=== PATIENT | female | born 1980 | race Caucasian/White ===

== ENCOUNTER 2017-04-29 07:01 | Emergency (ER) | payer MEDICAID ==
--- NOTE | 2017-04-29 07:08 | EDPHY ---
H & P Time Seen by Provider: 04/29/17 07:07 HPI/ROS: 36-year-old female presents complaining of right upper eyelid pain. She states while breast-feeding her daughter she reached up and poked her in the eyelid with her sharp tiny fingernail. This occurred 4 days ago. She now complains of pain and swelling to the right lateral eyelid. No blurred vision, no changes in vision. No fever or chills Review of systems As per HPI General no fever no chills no weakness HEENT no eye pain no eye discharge. No eye redness, no sore throat Respiratory no cough, no shortness of breath Cardiac no chest pain, no peripheral edema GI no abdominal pain, no diarrhea, no constipation, no nausea, no vomiting no flank pain, no hematuria, no dysuria Musculoskeletal no myalgias, no joint pain Heme no easy bruising, no easy bleeding Endo no polyuria, no polydipsia Skin no rashes, no pruritus Neuro no syncope, no dizziness, no headaches Psych is no suicidal ideation, no homicidal ideation Past Medical/Surgical History: Noncontributory Social History: No alcohol or drug use Smoking Status: Never smoked Physical Exam: 36-year-old female alert and oriented no acute distress nontoxic appearance afebrile Vital signs stable Atraumatic normocephalic Extraocular muscles intact, anicteric Right eye Right upper eyelid lateral aspect with erythema and edema, tenderness to palpation, no visible mass or pustule Extraocular muscle intact, pupillary response normal, no fluorescein uptake no fluorescein pooling Anterior chamber intact No respiratory distress Constitutional: Initial Vital Signs Temperature (C) 36.8 C 04/29/17 07:04 Heart Rate 86 04/29/17 07:04 Respiratory Rate 16 04/29/17 07:04 Blood Pressure 137/76 H 04/29/17 07:04 O2 Sat (%) 97 04/29/17 07:04 O2 Delivery Mode Room Air Allergies/Adverse Reactions: No Known Allergies Allergy (Verified 04/29/17 07:10) Home Medications: Medication Instructions Recorded Cefadroxil Hydrate [Cefadroxil] 500 mg PO BID 10 Days #20 capsule 04/29/17 04/29/17 Medical Decision Making ED Course/Re-evaluation: Patient seen and evaluated for right upper eyelid pain Differential diagnosis considered Sty, corneal abrasion, iritis, eyelid cellulitis, eyelid contusion Impression I suspect this was initially and eyelid abrasion , now I am concerned this his and eyelid cellulitis at the right lateral aspect. Plan Cefadroxil 500 twice daily times 10 days, safe in , patient currently breast-feeding Ibuprofen or acetaminophen as needed for pain Erythromycin ophthalmic ointment at bedtime x3 days Follow-up with Ophthalmology if not improving Return as needed - Data Points Medications Given: Discontinued Medications Erythromycin (Erythromycin 0.5%) 1 terry EACHEYE ONCE ONE Stop: 04/29/17 07:34 Last Admin: 04/29/17 07:43 Dose: 1 terry Proparacaine HCl (Alcaine 0.5%) 2 drops OP EDNOW ONE Stop: 04/29/17 07:12 Last Admin: 04/29/17 07:13 Dose: 2 drop Departure - Departure Disposition: Home, Routine, Self-Care Clinical Impression: Eyelid cellulitis Condition: Good Instructions: Erythromycin (Into the eye), Blepharitis (ED) Referrals: LUZ RUIZ,. [Primary Care Provider] - As per Instructions Bryce Marie MD [Medical Doctor] - As per Instructions Prescriptions: Cefadroxil Hydrate [Cefadroxil] 500 mg PO BID 10 Days #20 capsule
[2017-04-29 07:10] VITALS: BP 137/76; PULSE 86; RESP 16; TEMP 98.2; O2SAT 97
[2017-04-29] MEDS ORDERED: PROPARACAINE 0.5% 15 ML OPHT DROP OP ONE (07:11)
[2017-04-29] MEDS ORDERED: ERYTHROMYCIN 0.5% 1 GM OPHT.OINT EACHEYE ONE (07:33)
== END 2017-04-29 07:44 | disposition home or self-care (01) ==
LOC: CED 07:01
DX: H00.031 Abscess of right upper eyelid (principal)

== ENCOUNTER → 2018-11-02 | Outpatient (CLI) | payer OTHER | LOC: CIMAGING 07:56 ==